=== PATIENT | male | born 1960 | race African-American/Black ===

== ENCOUNTER 2021-11-14 10:01 | Emergency (ER) | payer BC, MEDICAID, OTHER ==
[~2021-11-14] VITALS: Ht 167.6 cm; Wt 82.0 kg
[2021-11-14 10:06] VITALS: BP 140/80
[2021-11-14] MEDS ORDERED: LIDOCAINE HCL 1% 20ML VIAL (Pyxis) INJ INFIL ONE (10:30)
[2021-11-14] MEDS ORDERED: ACETAMINOPHEN 325MG TABLET PO ONE (10:30)
== END 2021-11-14 12:10 | disposition home or self-care (01) ==
LOC: ER 10:01
DX: M79.89 Other specified soft tissue disorders (principal); Z98.84 Bariatric surgery status
CPT/HCPCS: 99281; J3490